=== PATIENT | male | born 1955 | race Caucasian/White ===

== ENCOUNTER 2022-12-19 00:01 | Emergency (ER) | payer MEDICARE ==
[~2022-12-19] VITALS: Ht 175.3 cm; Wt 95.3 kg
--- NOTE | 2022-12-19 00:02 | NUR ---
Note undone in EDM - 12/19/22 at 0055 by [email or web address] PT ALTAGRACIA MITCHELL FOR A BA AND MEDICAL EVALUATION. PT HAS A HX OF HTN AND CHRONIC HIP PAIN. PT DENIES PAIN AT THIS TIME. PT IS ALERT TO PERSON, PLACE, SITUATION, AND TIME. PT DENIES SOB OR CHEST PAIN. PT SKIN IS WARM TO TOUCH AND LAC NOTED ON THE LEFT 3RD DIGITAL. PT DENIES PAIN. PT DENIES N,V,D. PT DENIES URINARY OR BOWEL ISSUES. PT DENIES ABDOMINAL PAIN. PT DENIES HEAD TRAUMA. PT IS IN ROOM 6 WITH 'S PLAN OF CARE CONTINUES.
--- NOTE | 2022-12-19 00:06 | NUR ---
Patient to ER bed 6 to gown for evaluation. Side rails up. Report given to Margareth DAWN.
--- NOTE | 2022-12-19 00:07 | NUR ---
PT ALTAGRACIA MITCHELL FOR A BA AND MEDICAL EVALUATION. PT HAS A HX OF HTN AND CHRONIC HIP PAIN. PT DENIES PAIN AT THIS TIME. PT IS ALERT TO PERSON, PLACE, SITUATION, AND TIME. PT DENIES SOB OR CHEST PAIN. PT SKIN IS WARM TO TOUCH AND LAC NOTED ON THE LEFT 3RD DIGITAL. PT DENIES PAIN. PT DENIES N,V,D. PT DENIES URINARY OR BOWEL ISSUES. PT DENIES ABDOMINAL PAIN. PT DENIES HEAD TRAUMA. PT IS IN ROOM 6 WITH 'S PLAN OF CARE CONTINUES.
--- NOTE | 2022-12-19 00:08 | NUR ---
Written and verbal consent obtained from patient for blood alcohol, name and verified by patient. Disinfected patient's skin with IODINE that did not contain alcohol or other volatile organic compound. Collected the blood from the subject named by venipuncture, in the presence of Officer [id number]. Used a sterile, dry hypodermic needle and dry vacuum blood collection. Two dry vacuum blood collection was supplied by the officer named above. Withdrew a specimen of blood from RIGHT AC of the subject named above. Inverted both blood tubes several times to ensure that the preservative and anticoagulant were thoroughly mixed in the blood specimen. I initialed both blood tube labels for identification. The labeled blood tubes were handed directly to the Officer named above. The blood tubes stopper remained in place while I had possession of the blood tubes. The Officer placed tubes into envelope and sealed it in my presence. Envelope initialed by myself and Officer named above. Patient tolerated well, bandage applied, and bleeding controlled.
[2022-12-19 00:10] VITALS: BP_SYST 121; PULSE 84; RESP 16; TEMP 97.9; O2SAT 96
--- NOTE | 2022-12-19 00:10 | NUR ---
[facility] in ED - 12/19/22 at 0051 by SHAUNNA [facility] rails up. Report given to Margareth DAWN.
--- NOTE | 2022-12-19 00:20 | NUR ---
ER at bedside examining patient.
[2022-12-19 00:27] VITALS: BP_SYST 128; PULSE 82; RESP 20; TEMP 97.7; O2SAT 96
--- NOTE | 2022-12-19 00:47 | NUR ---
Note justina in ED - 12/19/22 at 0050 by [email or web address] Written and verbal consent obtained from patient for blood alcohol, name and verified by patient. Disinfected patient's skin with IDODINE that did not contain alcohol or other volatile organic compound. Collected the blood from the subject named by venipuncture, in the presence of Officer [id number]. Used a sterile, dry hypodermic needle and dry vacuum blood collection. Two dry vacuum blood collection was supplied by the officer named above. Withdrew a specimen of blood from of the subject named above. Inverted both blood tubes several times to ensure that the preservative and anticoagulant were thoroughly mixed in the blood specimen. I initialed both blood tube labels for identification. The labeled blood tubes were handed directly to the Officer named above. The blood tubes stopper remained in place while I had possession of the blood tubes. The Officer placed tubes into envelope and sealed it in my presence. Envelope initialed by myself and Officer named above. Patient tolerated well, bandage applied, and bleeding controlled.
--- NOTE | 2022-12-19 00:48 | NUR ---
Patient given written and verbal discharge instructions and verbalizes understanding. ER MD discussed with patient the results and treatment provided. Patient in stable condition. ID arm band removed. Patient educated on MEDICAL SCREENING and to follow up with PMD. Pain Scale 0 OUT OF 10. Opportunity for questions provided and answered. Medication side effect fact sheet provided.
== END 2022-12-19 00:48 ==
LOC: SED 00:01
DX: Z02.89 Encounter for other administrative examinations (principal)
CPT/HCPCS: 99283